=== PATIENT | male | born 1965 | race African-American/Black ===

== ENCOUNTER 2024-09-16 16:37 | Emergency (ER) | payer OTHER ==
[~2024-09-16] VITALS: Ht 205.7 cm; Wt 140.9 kg
[2024-09-16 16:40] VITALS: TEMP 98.2
[2024-09-16] MEDS: GLUCAGON,HUMAN RECOMBINANT 1 MG VIAL IM ONE ×2 (17:52→18:46)
[2024-09-16] MEDS: ACETAMINOPHEN 325 MG TABLET PO ONE (19:39)
[2024-09-16 19:44] VITALS: BP 122/75; PULSE 81; RESP 15; O2SAT 98
== END 2024-09-16 19:45 | disposition home or self-care (01) ==
LOC: EMS 16:37
DX: T18.128A Food in esophagus causing other injury, initial encounter (principal); I10 Essential (primary) hypertension; W44.F3XA Food entering into or through a natural orifice, initial encounter; Y93.89 Activity, other specified; Y92.89 Other specified places as the place of occurrence of the external cause; Y99.8 Other external cause status
CPT/HCPCS: 99284; 71045; 96372; J1610

== ENCOUNTER 2024-10-24 14:25 | Emergency (ER) | payer OTHER ==
[~2024-10-24] VITALS: Ht 205.7 cm; Wt 143.2 kg
[2024-10-24 14:30] VITALS: BP 127/76; PULSE 88; RESP 20; TEMP 98.1; O2SAT 95
[2024-10-24] MEDS ORDERED: HYDR25TA2 PO (14:35)
[2024-10-24] MEDS ORDERED: AMLO-258 PO (14:35)
== END 2024-10-24 16:09 | disposition left against medical advice (07) ==
LOC: EMS 14:25
DX: R07.0 Pain in throat (principal); Z53.21 Procedure and treatment not carried out due to patient leaving prior to being seen by health care provider

== ENCOUNTER 2025-01-03 18:18 | Emergency (ER) | payer OTHER ==
[~2025-01-03] VITALS: Ht 205.7 cm; Wt 141.0 kg
[~2025-01-03 18:18] MED LIST: AMLO-258 PO; HYDR25TA2 PO
[2025-01-03 18:26] VITALS: TEMP 98.3
[2025-01-03 18:49] LABS: BASOPHILS % (AUTO) 0.8 % (0.0-2.0); EOSINOPHILS % (AUTO) 1.9 % (1.0-6.0); HEMATOCRIT 46.6 % (41-53); HEMOGLOBIN 15.2 g/dL (13.5-17.5); LYMPHOCYTES # (AUTO) 0.8 K/uL (1.0-4.8); LYMPHOCYTES % (AUTO) 12.8 % (22.0-44.0); MEAN CORPUSCULAR HEMOGLOBIN 25.4 pg (26.0-34.0); MEAN CORPUSCULAR HGB CONC 32.6 G/dL (31.0-37.0); MEAN CORPUSCULAR VOLUME 78 fL (80-100); MONOCYTES # (AUTO) 0.6 K/uL (0.1-1.0); MONOCYTES % (AUTO) 9.8 % (2.0-9.0); NEUTROPHILS # (AUTO) 4.5 K/uL (1.8-7.7); NEUTROPHILS % (AUTO) 74.7 % (40.0-70.0); PLATELET COUNT (AUTO) 244 K/uL (150-450); RED BLOOD CELL COUNT(AUTO) 5.99 MIL/uL (4.50-5.90); RED CELL DISTRIBUTION WIDTH 14.1 % (11.5-14.5); WHITE BLOOD COUNT (AUTO) 6.1 K/uL (4.5-11.0)
[2025-01-03] MEDS: SODIUM CHLORIDE 0.9% 1,000 ML IV ONE (18:58)
[2025-01-03] MEDS: GLUCAGON,HUMAN RECOMBINANT 1 MG VIAL IVP ONE (18:58)
[2025-01-03 18:59] LABS: ANION GAP 6 mmol/L (8-16); CALCIUM, TOTAL 9.3 mg/dL (8.8-10.5); CARBON DIOXIDE 30 mmol/L (22-29); CHLORIDE 107 mmol/L (98-107); CREATININE 1.24 mg/dL (0.60-1.30); GLOMERULAR FILTR. RATE CALC > 60 mL/min (>60); GLUCOSE,RANDOM 108 mg/dL (70-110); POTASSIUM 3.6 mmol/L (3.5-5.1); SODIUM SERUM 143 mmol/L (136-145); UREA NITROGEN, BLOOD 12 mg/dL (7-18)
[2025-01-03 19:10] VITALS: BP 150/91; PULSE 75; RESP 18; O2SAT 97
[2025-01-03] MEDS ORDERED: PANT-31 PO (19:54)
== END 2025-01-03 19:55 | disposition home or self-care (01) ==
LOC: EMS 18:18
DX: T18.128A Food in esophagus causing other injury, initial encounter (principal); I10 Essential (primary) hypertension; Z88.5 Allergy status to narcotic agent; Z79.899 Other long term (current) drug therapy; W44.F3XA Food entering into or through a natural orifice, initial encounter; Y93.89 Activity, other specified; Y92.89 Other specified places as the place of occurrence of the external cause; Y99.8 Other external cause status
CPT/HCPCS: 99291; 96374; 96361; 80048; 85025; 36415; J1610; J7030

== ENCOUNTER 2025-04-16 18:56 | Emergency (ER) | payer OTHER ==
[~2025-04-16] VITALS: Ht 205.7 cm; Wt 145.4 kg
[~2025-04-16 18:56] MED LIST changes: +PANT-31 PO
[2025-04-16 20:13] LABS: PLATELET COUNT (AUTO) 222 K/uL (150-450); RED BLOOD CELL COUNT(AUTO) 6.19 MIL/uL (4.50-5.90); RED CELL DISTRIBUTION WIDTH 15.3 % (11.5-14.5); WHITE BLOOD COUNT (AUTO) 4.8 K/uL (4.5-11.0)
[2025-04-16 20:29] LABS: LACTIC ACID 0.6 mmol/L (0.4-2.0)
[2025-04-16 20:32] LABS: CALCIUM, TOTAL 8.9 mg/dL (8.8-10.5); CREATININE 1.27 mg/dL (0.60-1.30); GLOMERULAR FILTR. RATE CALC > 60 mL/min (>60); GLUCOSE,RANDOM 106 mg/dL (70-110); SODIUM SERUM 136 mmol/L (136-145); UREA NITROGEN, BLOOD 10 mg/dL (7-18)
[2025-04-16 20:34] LABS: TROPONIN I-HIGH SENSITIVITY 43 ng/L (<76)
[2025-04-16 20:35] LABS: BAND NEUTROPHILS % (MANUAL) 5 % (0-5); LYMPHOCYTES % (MANUAL) 25 % (22-44); MONOCYTES % (MANUAL) 8 % (2-9); SEGMENTED NEUTROPHILS % 62 % (40-70)
[2025-04-16] MEDS: ONDANSETRON HCL 4 MG/2 ML VIAL IVP ONE (20:40)
[2025-04-16] MEDS: MORPHINE SULFATE 4 MG/ML SYRINGE IVP ONE (20:40)
[2025-04-16] MEDS: DIPHENOXYLATE/ATROP 2.5-0.025 MG TABLET PO ONE (20:40)
[2025-04-16] MEDS: SODIUM CHLORIDE 0.9% 2,000 ML IV ONE (20:41)
[2025-04-16 20:47] LABS: ASPARTATE AMINOTRANSFERASE 33 U/L (15-37); TOTAL PROTEIN, SERUM 7.0 g/dL (6.4-8.2)
[2025-04-16] MEDS ORDERED: DIPH-1130 PO (21:49)
[2025-04-16] MEDS ORDERED: ACET-66 PO (21:49)
[2025-04-16] MEDS: ACETAMINOPHEN 500 MG TABLET PO ONE (22:03)
[2025-04-16] MEDS: POTASSIUM CHLORIDE 20 MEQ ER TABLET PO ONE (22:03)
[2025-04-16 23:49] LABS: APPEARANCE,URINE CLEAR (CLEAR); GLUCOSE, URINE (UA) NEGATIVE (NEGATIVE); LEUKOCYTE ESTERASE ,URINE NEGATIVE (NEGATIVE); NITRATE,URINE NEGATIVE (NEGATIVE); OCCULT BLOOD,URINE TRACE (NEGATIVE); SPECIFIC GRAVITIY, URINE 1.019 (1.003-1.030)
[2025-04-16 23:58] LABS: SQUAMOUS EPITHELIAL CELL,UR Few /LPF (None Seen)
[2025-04-17 01:34] VITALS: BP 125/69; PULSE 90; RESP 16; O2SAT 98
== END 2025-04-17 01:50 | disposition home or self-care (01) ==
LOC: EMS 19:03
DX: K52.9 Noninfective gastroenteritis and colitis, unspecified (principal); R10.9 Unspecified abdominal pain; E87.6 Hypokalemia; I10 Essential (primary) hypertension; Z88.5 Allergy status to narcotic agent; Z79.899 Other long term (current) drug therapy
CPT/HCPCS: 99285; 74176; 96374; 96361; 96375; 80048; 80076; 81001; 83605; 83690; 84484; 85025; 36415; 93005; J2270; J2405; J7030

== ENCOUNTER 2025-08-18 01:03 | Emergency (ER) | payer OTHER ==
[~2025-08-18] VITALS: Ht 205.7 cm; Wt 147.7 kg
[~2025-08-18 01:03] MED LIST changes: +ACET-66 PO; +DIPH-1130 PO
[2025-08-18 01:06] VITALS: TEMP 98.6
[2025-08-18] MEDS: GLUCAGON,HUMAN RECOMBINANT 1 MG VIAL IM ONE ×2 (01:35→02:46)
[2025-08-18] MEDS ORDERED: SODIUM CHLORIDE 0.9% 1,000 ML ONE (07:54)
[2025-08-18] MEDS ORDERED: FentaNYL CITRATE PF 100 MCG/2 ML VIAL ONE (07:58)
[2025-08-18] MEDS ORDERED: MIDAZOLAM HCL 2 MG/2 ML VIAL ONE (07:59)
[2025-08-18 11:27] VITALS: BP 111/66; PULSE 88; RESP 16; O2SAT 98
[2025-08-18] MEDS ORDERED: PANT-31 PO (11:29)
== END 2025-08-18 11:41 | disposition home or self-care (01) ==
LOC: EMS 01:03
DX: T18.128A Food in esophagus causing other injury, initial encounter (principal); I10 Essential (primary) hypertension; Z79.899 Other long term (current) drug therapy; Z88.5 Allergy status to narcotic agent; W44.F3XA Food entering into or through a natural orifice, initial encounter
CPT/HCPCS: 43235; 99285; 88305; 96372; J1610; C1769; J3010; J2250; J7030